=== PATIENT | male | born 1990 | race Caucasian/White ===

== ENCOUNTER 2021-01-21 13:27 | Emergency (ER) | payer OTHER ==
[~2021-01-21] VITALS: Ht 203.2 cm; Wt 95.3 kg
[2021-01-21 13:30] VITALS: BP_SYST 125
[2021-01-21 14:07] VITALS: BP_SYST 125
[2021-01-21] MEDS ORDERED: DIPH-TET-PERTUS Vaccine 0.5 ML VIAL (ADACEL) I.M. ONE (14:15)
== END 2021-01-21 14:08 | disposition home or self-care (01) ==
LOC: SED 13:27
DX: S61.230A Puncture wound without foreign body of right index finger without damage to nail, initial encounter (principal); W46.0XXA Contact with hypodermic needle, initial encounter; Y93.89 Activity, other specified; Y92.89 Other specified places as the place of occurrence of the external cause; Y99.0 Civilian activity done for income or pay
CPT/HCPCS: 36415; 86704; 86706; 86803; 87340; 90715; 99283